=== PATIENT | female | born 1950 | race African-American/Black ===

== ENCOUNTER 2023-06-22 16:18 | Emergency (ER) | payer OTHER ==
[~2023-06-22] VITALS: Ht 165.1 cm; Wt 107.0 kg
[2023-06-22 16:47] VITALS: BP_SYST 139; PULSE 66; RESP 18; TEMP 98.4; O2SAT 97
[2023-06-22] MEDS ORDERED: OXYM15MI9 NS (19:08)
[2023-06-22 19:38] VITALS: BP_SYST 176; PULSE 66; RESP 18; TEMP 97.7; O2SAT 98
== END 2023-06-22 19:25 | disposition home or self-care (01) ==
LOC: SED 16:18 → EDBD 16:18 → SED 19:25
DX: R22.0 Localized swelling, mass and lump, head (principal); J34.89 Other specified disorders of nose and nasal sinuses; Z88.8 Allergy status to other drugs, medicaments and biological substances; Z79.899 Other long term (current) drug therapy
CPT/HCPCS: 99282